=== PATIENT | female | born 1970 | race Caucasian/White ===

== ENCOUNTER 2016-10-08 16:23 | Emergency (ER) | payer OTHER ==
[~2016-10-08] VITALS: Ht 162.6 cm; Wt 84.4 kg
[~2016-10-08 16:23] MED LIST: FAMO20TA11 PO; IBUP-1050 PO; NAPR1TAB9 PO; PRLSR20 PO
[2016-10-08 16:28] VITALS: TEMP 37; Ht 162.6 cm; Wt 84.4 kg
--- NOTE | 2016-10-08 17:06 | DIAGNOSTIC IMAGING REPORT ---
LEFT TIBIA AND FIBULA 2 VIEWS CLINICAL HISTORY: Left calf pain. FINDINGS: AP and lateral views of the left tibia and fibula are obtained. No prior studies are available for comparison at the time of dictation. The skeletal structures are well mineralized. No fracture is seen. The knee and ankle joints are grossly maintained. Soft tissue edema is present in the calf. IMPRESSION: Soft tissue edema with no acute bony abnormality identified. Electronically signed by: Campbell Castellano M.D. 10/08/2016 5:05 PM Dictated Date/Time: 10/08/2016 5:04 PM
[2016-10-08] MEDS ORDERED: OMEP40CA18 PO (17:23)
--- NOTE | 2016-10-08 17:30 | DIAGNOSTIC IMAGING REPORT ---
ULTRASOUND LEFT LOWER EXTREMITY VENOUS CLINICAL HISTORY: Left calf pain. COMPARISON STUDY: No priors. TECHNIQUE: Real-time, grayscale, and color Doppler sonography of the deep veins of the left lower extremity was performed from the inguinal crease to the calf. Compression and augmentation were utilized. FINDINGS: There is no sonographic evidence of deep venous thrombosis identified in the left lower extremity. The common femoral, superficial femoral, and popliteal veins are patent and normally compressible. The greater saphenous vein and the profunda femoris vein at the junction with the common femoral vein are clear. The visualized calf veins are patent. No abnormality is identified in the left posterior calf at the site of interest indicated by the patient. IMPRESSION: There is no sonographic evidence of deep venous thrombosis identified in the left lower extremity. Electronically signed by: Campbell Castellano M.D. 10/08/2016 5:29 PM Dictated Date/Time: 10/08/2016 5:29 PM
[2016-10-08 17:42] VITALS: BP 152/97; PULSE 70; O2SAT 98
--- NOTE | 2016-10-08 17:54 | EMERGENCY ROOM VISIT NOTE ---
History First contact with patient: 16:51 Chief Complaint: LEG PAIN,LEG INJURY Stated Complaint: L CALF PAIN History of Present Illness The patient is a 46 year old female who presents to the Emergency Room with complaints of increasing left lower calf pain. The patient reports that she noticed worsening discomfort this morning around 10 AM. The pain is now going up into the upper calf region. The patient reports that she hit her leg on the lower corner of her car door over the weekend. She did notice a small bruise to the area. Weightbearing worsens her pain to a 7 out of 10. She denies any significant swelling of the calf, paresthesias or numbness of the foot or toes, or pain radiating into the knee. She denies any prior history of DVT. Review of Systems 10 system review was performed and was negative except for pertinent positives and negatives as indicated in history of present illness Past Medical/Surgical History Medical Problems: (1) Esophageal Reflux (2) History Of Tobacco Use Surgical Problems: (1) History of cholecystectomy Family History Unremarkable Social History Smoking Status: Former Smoker Alcohol Use: occasionally Marital Status: single Housing Status: lives with family Occupation Status: employed Current/Historical Medications Scheduled Omeprazole-Sodium Bicarbonate (Zegerid), 1 CAP PO DAILY Allergies Coded Allergies: No Known Allergies (Verified , 10/08/16) Physical Exam Vital Signs Date Time Temp Pulse Resp B/P (MAP) Pulse Ox O2 Delivery O2 Flow Rate FiO2 10/08/16 16:28 37.0 79 18 145/93 99 Room Air Physical Exam CONSTITUTIONAL: Healthy and well nourished. Alert and oriented X 3 with positive affect. HEENT: Normocephalic, atraumatic. Pupils equal, round and reactive. NECK: Full active range of motion without discomfort. RESPIRATORY: Clear to auscultation bilaterally with no wheezing, crackles, rhonchi or stridor. CARDIOVASCULAR: Regular rate and rhythm with no murmurs, rubs or gallops. MUSCULOSKELETAL: Examination of the left leg shows a small quarter-sized area of ecchymosis over the posterolateral calf. She has tenderness to palpation about this region and through the gastrocnemius muscle. No popliteal masses or tenderness to palpation of the hamstrings. She has no worsening pain with flexion and extension of the ankle. Pedal pulses are intact. INTEGUMENTARY: No rash or other significant dermatologic conditions noted. NEUROLOGIC: No focal neurologic deficits noted. Medical Decision & Procedures ER Provider Diagnostic Interpretation: My interpretation of left leg x-rays does not show any underlying fracture or other bony lesion. Radiologist report is as follows: LEFT TIBIA AND FIBULA 2 VIEWS CLINICAL HISTORY: Left calf pain. FINDINGS: AP and lateral views of the left tibia and fibula are obtained. No prior studies are available for comparison at the time of dictation. The skeletal structures are well mineralized. No fracture is seen. The knee and ankle joints are grossly maintained. Soft tissue edema is present in the calf. IMPRESSION: Soft tissue edema with no acute bony abnormality identified. Venous ultrasound of the left lower extremity is negative for deep vein thrombosis. Radiologist report is as follows: ULTRASOUND LEFT LOWER EXTREMITY VENOUS CLINICAL HISTORY: Left calf pain. COMPARISON STUDY: No priors. TECHNIQUE: Real-time, grayscale, and color Doppler sonography of the deep veins of the left lower extremity was performed from the inguinal crease to the calf. Compression and augmentation were utilized. FINDINGS: There is no sonographic evidence of deep venous thrombosis identified in the left lower extremity. The common femoral, superficial femoral, and popliteal veins are patent and normally compressible. The greater saphenous vein and the profunda femoris vein at the junction with the common femoral vein are clear. The visualized calf veins are patent. No abnormality is identified in the left posterior calf at the site of interest indicated by the patient. IMPRESSION: There is no sonographic evidence of deep venous thrombosis identified in the left lower extremity. ED Course Patient history and physical exam were performed. Nurse's notes were reviewed. The patient refused any analgesics. X-rays of the left leg, along with venous ultrasound of the left lower extremity, are both normal. The patient was advised that symptoms are likely secondary to soft tissue edema/bruising of the underlying muscle. She was encouraged to perform modalities, alternating ice and heat to the leg. Ibuprofen or Tylenol as needed for pain. Follow-up with orthopedics if symptoms are not improving within the next week. The patient was happy with plan of care, voiced understanding of all discharge instructions, and rated her pain a 4 out of 10 at the time of discharge. Medical Decision Impression Primary Impression: Contusion of left calf Departure Information Referrals No Doctor, Assigned (PCP) Patient Instructions My [facility] Problem Qualifiers Primary Impression: Contusion of left calf Encounter type: initial encounter Qualified Codes: S80.12XA - Contusion of left lower leg, initial encounter
== END 2016-10-08 17:42 | disposition home or self-care (01) ==
LOC: C.EDB 16:24 → C.EDD 17:42
DX: S80.12XA Contusion of left lower leg, initial encounter (principal); W22.8XXA Striking against or struck by other objects, initial encounter; Y92.89 Other specified places as the place of occurrence of the external cause; K21.9 Gastro-esophageal reflux disease without esophagitis; Z87.891 Personal history of nicotine dependence; Z79.899 Other long term (current) drug therapy

== ENCOUNTER → 2016-11-27 | Outpatient (CLI) | payer OTHER ==
[~2016-11-27] MED LIST changes: -FAMO20TA11 PO; -IBUP-1050 PO; -NAPR1TAB9 PO; +OMEP40CA18 PO; -PRLSR20 PO
== END | disposition home or self-care (01) ==
LOC: C.LAB 07:19
PROVIDERS: ATTEND Physician Assistant
DX: Z00.00 Encounter for general adult medical examination without abnormal findings (principal); Z13.220 Encounter for screening for lipoid disorders; Z13.1 Encounter for screening for diabetes mellitus